=== PATIENT | female | born 1930 | race Caucasian/White ===

== ENCOUNTER → 2017-02-16 | Outpatient (CLI) | payer MEDICARE, BC ==
--- NOTE | 2017-02-16 13:59 | NM ---
EXAMINATION TYPE: NM bone 3 phase DATE OF EXAM: 02/16/2017 1:45 PM COMPARISON: NONE HISTORY: Right foot and ankle pain Triple phase bone scintigraphy was performed following the injection of24.5 mCi Tc 99m MDP. Immediat e images and 5 hours post injection images acquired. FINDINGS: There is mild increased flow to the right foot. Pool images demonstrate increased uptake in the dista l right fifth metatarsal. This is confirmed on delayed images. IMPRESSION: ABNORMAL ACTIVITY, DISTAL RIGHT FIFTH METATARSAL.
== END | disposition home or self-care (01) ==
LOC: RADNMMAIN 07:14
PROVIDERS: ATTEND Surgery
DX: R94.8 Abnormal results of function studies of other organs and systems (principal); M86.8X7 Other osteomyelitis, ankle and foot
CPT/HCPCS: 78315; A9503

== ENCOUNTER → 2017-02-28 | Outpatient (CLI) | payer MEDICARE, BC ==
--- NOTE | 2017-02-28 15:47 | US ---
EXAMINATION TYPE: US venous doppler duplex LE DATE OF EXAM: 02/28/2017 2:49 PM COMPARISON: NONE CLINICAL HISTORY: M79.604 Pain In Limb. Pt has non-healing wounds left lower leg LOWER EXTREMITY VENOUS INSUFFICIENCY SIDE PERFORMED: Bilateral 1) Color flow is present and patency is documented in the following vessels. No DVT or SVT is noted . ? EIV ? Common Femoral Vein ? Deep Femoral Vein ? Femoral Vein ? Popliteal Vein ? Proximal Calf Veins ? Greater Saph Vein ? Upper Small Saph Vein 2) There is venous reflux noted at the following venous levels: Right Fem Prox, and Right Small Saph Vein Left Fem Mid, Left Small Saph Vein Satisfactory color flow, phasicity, compressibility is seen in the bilateral lower extremity venous s tructures noted above. IMPRESSION: No ultrasound evidence for acute DVT in either lower extremity. Documentation of bilatera l venous reflux as noted above.
--- NOTE | 2017-03-07 11:41 | P.ARTDOP ---
Arterial Doppler LOWER EXTREMITY ARTERIAL DOPPLER: DATE OF SERVICE: 02/28/2017 Reason for study: Left leg ulcer. Doppler waveforms: Multiphasic bilaterally throughout. Pulse volume recording: Some distal blunting. Pressure gradients: Mild gradient across the knee on the right. Mild distal gradients. Ankle-brachial indices: 0.77 on the right and 0.86 on the left.. Toe pressures: [] on the right, 50 on the left Impression: Mild to moderate bilateral distal disease. Total perfusion pressures adequate for healing on the left. Clinical correlation recommended..
== END | disposition home or self-care (01) ==
LOC: RADUSWWP 14:07
PROVIDERS: ATTEND Surgery
DX: I87.2 Venous insufficiency (chronic) (peripheral) (principal)
CPT/HCPCS: 93923; 93970

== ENCOUNTER → 2017-03-21 | Outpatient (CLI) | payer MEDICARE, BC ==
--- NOTE | 2017-03-22 14:03 | NM ---
EXAMINATION TYPE: NM WBC limited DATE OF EXAM: 03/22/2017 COMPARISON: Right foot 03/09/2017, 3 phase bone scan 02/16/2017 HISTORY: Osteomyelitis, open sore right foot laterally TECHNIQUE: Following administration of 20.9 mCi Tc99m Ceretec. Images obtained 4 hour(s) and 24 deejay r(s) post injection. FINDINGS: There is abnormal radial pharmaceutical uptake present at the level of the metatarsophalangeal joint of the fifth digit of the right foot. Abnormal uptake also noted at the medial leg in the left distal ly. IMPRESSION: Findings suggest osteomyelitis to the fifth digit of the right foot, possible cellulitis medial left leg
== END | disposition home or self-care (01) ==
LOC: RADNMMAIN 06:40
PROVIDERS: ATTEND Podiatrist
DX: M86.8X7 Other osteomyelitis, ankle and foot (principal)
CPT/HCPCS: 78805

== ENCOUNTER 2017-04-06 06:09 | Day surgery (SDC) | payer MEDICARE, BC ==
[2017-04-04 12:02] VITALS: BMI 24.6
[~2017-04-06 06:09] MED LIST: HYDROmorphone 1 MG/ML 1 ML SYRINGE IVP PRN; LACTATED RINGERS 1,000 ML IV SCH; LIDOCAINE 1% 20 ML VIAL (10MG/ML) FOR IV START INTRADERMA PRN; ONDANSETRON 4 MG/2 ML VIAL IVP ONE; ceFAZolin 2 GM in SODIUM CHLORIDE 0.9% 100 ML IVPB ONE
[2017-04-06 06:38] VITALS: TEMP 97
[2017-04-06] MEDS ORDERED: PROPOFOL 10 MG/ML 20 ML VIAL IV ONE (07:33)
[2017-04-06] MEDS ORDERED: MIDAZOLAM 2 MG/2 ML VIAL ONE (07:33)
[2017-04-06] MEDS ORDERED: fentaNYL (PF) 50 MCG/ML 2 ML AMP ONE (07:33)
[2017-04-06] MEDS ORDERED: LIDOCAINE 1% INJ 10MG/ML (20 ML MDV) ONE (07:33)
[2017-04-06] MEDS ORDERED: LIDOCAINE 2% INJ 20 MG/ML SQ ONE (07:44)
[2017-04-06] MEDS ORDERED: BUPIVACAINE (PF) 0.5% 30 ML VIAL SQ ONE ×2 (07:59→08:26)
[2017-04-06 08:41] VITALS: RESP 18
[2017-04-06 09:01] VITALS: BP 145/87; PULSE 89
--- NOTE | 2017-04-06 17:04 | PCN ---
DATE OF PROCEDURE: 04/06/2017 PREOPERATIVE DIAGNOSIS: Infected osteomyelitis, 5th metatarsal, 5th digit, right foot. POSTOPERATIVE DIAGNOSIS: Infected osteomyelitis, 5th metatarsal, 5th digit, right foot. SURGEON: EULALIA TAVAREZ DPM ASSIST: None. PROCEDURE: Amputation, partial metatarsal with 5th digit, right foot. ANESTHESIA: Local with sedation. PROCEDURE: The patient presented 2 hours prior to foot surgery, having been n.p.o. since previous midnight. All labs, H and P, x-rays, consent were reviewed and no counterindication to the above-proposed foot surgery was found. The patient was brought to the OR and placed on the OR table in supine position. IV was instituted and sedation given. Left foot was then anesthetized using 10 mL of 2% Xylocaine plain. Left foot was then prepped and draped in the usual aseptic manner. The foot was then exsanguinated via elevation, use of an Yaron wrap for 3 minutes, after which time the pneumatic tourniquet was inflated to 250 mmHg. Attention was then directed to the dorsal lateral aspect of the right foot, where incision was made running along the 5th metatarsal and circumferentially about the 5th digit at its base. Incision was carried down through superficial and deep fascia, with care taken to retract all vital structures and then clamp cauterize all superficial bleeders. The wound was deepened down to the capsular tissue of the 5th digit, where the capsular tissue was entered and the 5th toe was amputated and from surrounding tissue. It was retained for pathological evaluation. Incision was then carried down to bone along the dorsal surface of the 5th met. Soft tissue was then released along the 5th on its dorsal, medial, lateral, plantar surfaces. This exposed an atrophic irregular surface of the 5th metatarsal distally. Using the sagittal saw, the distal 1/2 of the 5th metatarsal was removed with an osteotomy running from proximal lateral, dorsal to plantar, distal medial across the 5th met. The 5th metatarsal was then removed and retained for pathological evaluation. The area was then inspected and adequate surgical reduction and clinical deformity was noted. There was no necrotic tissue present secondary to the infection. The wound was then copiously lavaged with sterile saline solution. Using 3-0 Vicryl simple interrupted sutures, the tendon was repaired along the 5th metatarsal head. Superficial and deep fascia planes were repaired with 3-0 Vicryl simple interrupted sutures. Superficial fascial planes were then re-approximated at the terminal layer with 4-0 Vicryl simple interrupted sutures. Skin edges were repaired with 4-0 nylon horizontal mattress and simple interrupted sutures. Attention then was directed to the plantar aspect of the right foot, where a small open lesion was noted. This lesion was then excised using 2 semi-elliptical incisions 1 cm in length. Once this was excised, the area was copiously lavaged with sterile saline solution and the skin edges were repaired with 4-0 nylon horizontal mattress sutures. The wound was then infiltrated with 10 mL of 0.5% Marcaine plain. The wound was then dressed in a mildly compressive manner using triple antibiotic, Adaptic, 4 x 4's, 3-inch Danielle and Kerlix. The pneumatic tourniquet was deflated and adequate vascular return was noted to all areas of the right foot. The patient was brought to recovery room from the OR, having tolerated the procedure and anesthesia well, vital signs stable, neurovascular status intact. The patient was monitored until stable and discharged postop shoe, weight bearing right. Postoperative prescribe for Tylenol No. 3 is in the postop orders. The patient is to follow up in our clinic as well as Dr. Valadez' clinic postoperatively as instructed.
== END 2017-04-06 09:26 | disposition home or self-care (01) ==
LOC: OR 06:09
PROVIDERS: ATTEND Podiatrist
DX: M86.8X7 Other osteomyelitis, ankle and foot (principal); I10 Essential (primary) hypertension; E78.5 Hyperlipidemia, unspecified; K21.9 Gastro-esophageal reflux disease without esophagitis; Z87.891 Personal history of nicotine dependence; Z86.14 Personal history of Methicillin resistant Staphylococcus aureus infection; Z79.82 Long term (current) use of aspirin; Z79.899 Other long term (current) drug therapy; Z88.1 Allergy status to other antibiotic agents; Z88.0 Allergy status to penicillin; Z88.2 Allergy status to sulfonamides; Z88.8 Allergy status to other drugs, medicaments and biological substances
CPT/HCPCS: 87070; 87205; 87075; 28810; J2001 ×2; J2250; J0690; J2405; J3010; J2704; 87077; 87186; 88304; 88305; 88311